=== PATIENT | female | born 1945 | race Two or more races ===

== ENCOUNTER 2023-02-04 02:52 | Inpatient (IN) | payer OTHER ==
[2023-02-04] VITALS (10 sets, daily range): BP systolic 107–133; BP diastolic 49–73; PULSE 72–78; RESP 16–18; TEMP 97.9–99.2; O2SAT 93–95
[~2023-02-04] VITALS: Ht 151.1 cm; Wt 70.6 kg
[2023-02-04] MEDS ORDERED: NITROGLYCERIN 0.4 MG SL TAB SL PRN (06:45)
[2023-02-04] MEDS ORDERED: MORPHINE SULFATE INJ 2 MG/ml SYRG IV PRN (06:45)
[2023-02-04] MEDS ORDERED: ACETAMINOPHEN 325 MG TAB PO PRN (06:45)
[2023-02-04] MEDS ORDERED: DOCUSATE SOD 100 MG CAP PO PRN (06:45)
[2023-02-04] MEDS ORDERED: ONDANSETRON HCL 4 MG/2 ML VIAL IV PRN (06:45)
[2023-02-04] MEDS ORDERED: PANTOPRAZOLE 40 MG/10 ML VIAL INJ IV SCH (10:00)
[2023-02-04] MEDS: ENOXAPARIN SOD 40 MG/0.4 ML SYRINGE SC SCH (10:08)
[2023-02-04] MEDS: MORPHINE SULFATE INJ 2 MG/ml SYRG IV PRN ×2 (13:52→21:34)
[2023-02-04 14:06] LABS: Basophils # (auto) 0.1 10 ^3/uL (0-0.2); Basophils % (auto) 0.7 % (0.0-2.0); Eosinophils # (auto) 0.1 10 ^3/uL (0-0.8); Eosinophils % (auto) 0.5 % (0.0-7.0); Hematocrit 38.7 % (36.0-46.0); Hemoglobin 13.3 g/dL (12.2-16.2); Lymphocytes % (auto) 17.5 % (10.0-50.0); Mean Corpuscular Hemoglobin 31.4 pg (28.0-32.0); Mean Corpuscular Hgb Conc. 34.3 g/dL (32.0-36.0); Mean Corpuscular Volume 91.5 fL (80.0-100.0); Monocytes # (auto) 0.9 10 ^3/uL (0-1.3); Monocytes % (auto) 7.8 % (0.0-12.0); Neutrophils # (auto) 8.5 10 ^3/uL (1.6-8.6); Neutrophils % (auto) 73.5 % (37.0-80.0); Red Blood Cells 4.23 10^6/uL (4.0-5.20); Red Cell Distribution Width 13.5 % (11.8-14.3); White Blood Cell 11.6 10^3/uL (4.4-10.8)
[2023-02-04 14:30] LABS: Alanine Aminotransferase 28 U/L (7-40); Albumin 4.5 g/dL (3.2-4.8); Alkaline Phosphatase 76 U/L (46-116); Anion Gap 8 (5-15); Aspartate Aminotransferase 28 U/L (13-40); BUN/Creatinine Ratio 11.7 (10.0-20.0); Blood Urea Nitrogen 9 mg/dL (9-23); Calcium 9.2 mg/dL (8.7-10.4); Carbon Dioxide 25 mmol/L (20-30); Chloride 106 mmol/L (98-107); Glucose 158 mg/dL (74-106); Potassium 3.6 mmol/L (3.5-5.1); Sodium 139 mmol/L (136-145); Total Protein 6.9 g/dL (5.7-8.2)
[2023-02-05] MEDS: HYDROcodone-ACET 5/325MG TAB PO PRN ×3 (04:51→13:44)
[2023-02-05 05:00] VITALS: BP 121/60; PULSE 73; RESP 18; TEMP 98.4; O2SAT 93
[2023-02-05 06:27] LABS: Anion Gap 7 (5-15); Calcium 8.8 mg/dL (8.5-10.1); Carbon Dioxide 24 mmol/L (20-30); Chloride 106 mmol/L (98-107); Potassium 3.5 mmol/L (3.5-5.1); Sodium 137 mmol/L (136-145)
[2023-02-05 06:32] LABS: BUN/Creatinine Ratio 11.8 (10.0-20.0); Blood Urea Nitrogen 9 mg/dL (9-23); Glucose 121 mg/dL (74-106)
[2023-02-05 07:05] LABS: Basophils # (auto) 0.1 10 ^3/uL (0-0.2); Basophils % (auto) 0.6 % (0.0-2.0); Eosinophils # (auto) 0.1 10 ^3/uL (0-0.8); Eosinophils % (auto) 0.7 % (0.0-7.0); Hematocrit 35.3 % (36.0-46.0); Hemoglobin 12.2 g/dL (12.2-16.2); Lymphocytes # (auto) 3.3 10 ^3/uL (0.4-5.4); Lymphocytes % (auto) 29.2 % (10.0-50.0); Mean Corpuscular Hemoglobin 30.9 pg (28.0-32.0); Mean Corpuscular Hgb Conc. 34.6 g/dL (32.0-36.0); Mean Corpuscular Volume 89.5 fL (80.0-100.0); Monocytes # (auto) 1.4 10 ^3/uL (0-1.3); Neutrophils # (auto) 6.5 10 ^3/uL (1.6-8.6); Neutrophils % (auto) 57.5 % (37.0-80.0); Nucleated Red Blood Cells % 0.2 %; Red Blood Cells 3.94 10^6/uL (4.0-5.20); Red Cell Distribution Width 13.5 % (11.8-14.3); White Blood Cell 11.3 10^3/uL (4.4-10.8)
[2023-02-05 08:30] VITALS: PULSE 67; RESP 19
[2023-02-05 09:00] VITALS: BP 110/44; PULSE 67; RESP 19; TEMP 98.3; O2SAT 95
[2023-02-05] MEDS: ENOXAPARIN SOD 40 MG/0.4 ML SYRINGE SC SCH (09:29)
[2023-02-05] MEDS ORDERED: HYDR-4902 PO (11:51)
[2023-02-05 13:00] VITALS: BP 106/48; PULSE 76; RESP 18; TEMP 98; O2SAT 94
[2023-02-05 17:00] VITALS: BP 106/54; PULSE 70; RESP 20; TEMP 98; O2SAT 93
[2023-02-05 18:03] VITALS: TEMP 36.7
== END 2023-02-05 18:59 | disposition home health service (06) | DRG 563 ==
LOC: OVERFLOW 06:46 → CENTRAL 08:02
PROVIDERS: ADMIT Nurse Practitioner Family; ATTEND Internal Medicine
DX: S82.851A Displaced trimalleolar fracture of right lower leg, initial encounter for closed fracture (principal); W18.09XA Striking against other object with subsequent fall, initial encounter; E66.01 Morbid (severe) obesity due to excess calories; Y93.89 Activity, other specified; Y92.89 Other specified places as the place of occurrence of the external cause; Z68.30 Body mass index [BMI] 30.0-30.9, adult; Y99.8 Other external cause status
CPT/HCPCS: 36415; 73610; 80048; 80053; 85025; 97110; 97116; 97163; 97530; C9113; G0378